=== PATIENT | female | born 1990 | race Two or more races ===

== ENCOUNTER 2016-11-14 03:51 | Emergency (ER) | payer MEDICAID, OTHER ==
[~2016-11-14] VITALS: Ht 167.6 cm; Wt 78.0 kg
[2016-11-14] MEDS ORDERED: FLUORESCEIN SODIUM 1MG/STRIP OP ONE (08:30)
[2016-11-14] MEDS ORDERED: TETRACAINE 0.5% OPHTH DROPS 4ML OP ONE (08:30)
[2016-11-14 09:17] VITALS: BP 96/56
== END 2016-11-14 09:18 | disposition home or self-care (01) ==
LOC: ER 04:00
DX: S05.12XA Contusion of eyeball and orbital tissues, left eye, initial encounter (principal); M54.2 Cervicalgia; F10.129 Alcohol abuse with intoxication, unspecified; Y90.9 Presence of alcohol in blood, level not specified; M25.512 Pain in left shoulder; V43.52XA Car driver injured in collision with other type car in traffic accident, initial encounter; Y93.89 Activity, other specified; Y92.488 Other paved roadways as the place of occurrence of the external cause
CPT/HCPCS: 70450; 70486; 72125; 73030; 81025; 99285